=== PATIENT | male | born 1950 | race Two or more races ===

== ENCOUNTER 2022-10-30 05:20 | Day surgery (SDC) | payer BC ==
[2022-10-25 10:32] VITALS: BMI 23.8
[2022-10-30 09:37] VITALS: RESP 20
[2022-10-30] MEDS ORDERED: MIDAZOLAM HCL 2 MG/2 ML SINGLE DOSE VIAL ONE (11:42)
[2022-10-30] MEDS ORDERED: ONDANSETRON 4 MG/2 ML VIAL ONE (11:42)
[2022-10-30 15:01] VITALS: BP 138/85; PULSE 65; TEMP 97.6
== END 2022-10-30 14:35 | disposition home or self-care (01) ==
LOC: JASU-SURG 05:20
PROVIDERS: ATTEND Urology
PROC: 0TF3XZZ Fragmentation in Right Kidney Pelvis, External Approach (ICD-10-PCS; principal; 2022-10-30 11:00)
DX: N20.0 Calculus of kidney (principal)
CPT/HCPCS: 82962

== ENCOUNTER 2023-10-13 14:18 | Emergency (ER) | payer BC ==
[2023-10-13 14:24] VITALS: BP 151/89; PULSE 78; RESP 16; TEMP 97.9; BMI 22.8
[2023-10-13 14:57] LABS: EPI CELLS 1 /uL (0-25.1); HYALINE CASTS 0 /uL (0-3.1); URINE APPEARANCE CLOUDY; URINE BACTERIA 45 /uL (0-1359); URINE BILIRUBIN NEGATIVE (NEGATIVE); URINE COLOR YELLOW; URINE GLUCOSE (UA) NEGATIVE (NEGATIVE); URINE KETONE NEGATIVE (NEGATIVE); URINE LEUK ESTERASE 2+ (NEGATIVE); URINE NITRITE NEGATIVE (NEGATIVE); URINE PROTEIN 3+ (NEGATIVE); URINE RBC 4909 /uL (0-23.9); URINE WBC 2472 /uL (0-25.8)
== END 2023-10-13 15:53 | disposition home or self-care (01) ==
LOC: JERFT 14:18
DX: R30.0 Dysuria (principal); R35.0 Frequency of micturition
CPT/HCPCS: 81003; 87086; 99283-25

== ENCOUNTER 2024-01-31 11:37 | Inpatient (IN) | payer BC, OTHER ==
[2024-01-31 11:47] VITALS: BMI 22.8
[2024-01-31 13:47] LABS: BASO % 1.8 % (0-2.0); EOS % 3.8 % (0-4.5); HEMATOCRIT 36.5 % (35.4-49); HEMOGLOBIN 12.6 GM/dL (11.7-16.9); LYMPH % 12.6 % (8-40); MCH 32.7 pg (25.7-33.7); MCHC 34.5 g/dl (32.0-35.9); MEAN PLT VOLUME 8.6 fl (7.5-11.1); MONO % 9.2 % (3.8-10.2); NEUT % 72.6 % (42.8-82.8); PLATELET COUNT 277 10^3/uL (134-434); RBC 3.84 M/mm3 (4.00-5.60); RDW 16.4 % (11.9-15.9); WHITE BLOOD COUNT 6.3 K/mm3 (4.0-10.0)
[2024-01-31 13:56] LABS: INR 1.05 (0.83-1.09); PROTHROMBIN TIME (PATIENT) 11.9 SEC (9.7-13.0)
[2024-01-31 13:59] LABS: ACTIVATED PTT 31.6 SECONDS (25.2-36.5)
[2024-01-31 14:07] LABS: POTASSIUM 4.6 mmol/L (3.5-5.1)
[2024-01-31 14:09] LABS: CALCIUM 9.4 mg/dL (8.5-10.1)
[2024-01-31 14:10] LABS: ALBUMIN 3.3 g/dl (3.4-5.0); BLOOD UREA NITROGEN 32.1 mg/dL (7-18)
[2024-01-31 14:13] LABS: CREATININE 1.9 mg/dL (0.55-1.3)
[2024-01-31 14:14] LABS: BILIRUBIN,TOTAL 7.5 mg/dL (0.2-1)
[2024-01-31 14:15] LABS: TOT PROT 7.3 g/dl (6.4-8.2)
[2024-01-31] MEDS: SODIUM CHLORIDE 1,000 ML IV ONE (16:22)
[2024-02-01] MEDS ORDERED: DEXTROSE 5%-0.45% SALINE 1,000 ML IV SCH (06:30)
[2024-02-01 10:52] LABS: BASO % 1.1 % (0-2.0); EOS % 5.4 % (0-4.5); HEMATOCRIT 31.4 % (35.4-49); MCH 33.1 pg (25.7-33.7); MCHC 35.1 g/dl (32.0-35.9); MEAN CELL VOLUME 94.4 fl (80-96); MEAN PLT VOLUME 8.5 fl (7.5-11.1); MONO % 7.9 % (3.8-10.2); NEUT % 67.6 % (42.8-82.8); PLATELET COUNT 212 10^3/uL (134-434); RBC 3.33 M/mm3 (4.00-5.60); RDW 16.4 % (11.9-15.9); WHITE BLOOD COUNT 5.2 K/mm3 (4.0-10.0)
[2024-02-01 10:55] LABS: INR 1.14 (0.83-1.09); PROTHROMBIN TIME (PATIENT) 13.1 SEC (9.7-13.0)
[2024-02-01 11:14] LABS: POTASSIUM 4.3 mmol/L (3.5-5.1)
[2024-02-01 11:16] LABS: CALCIUM 8.4 mg/dL (8.5-10.1)
[2024-02-01 11:17] LABS: ALBUMIN 2.7 g/dl (3.4-5.0); BLOOD UREA NITROGEN 28.6 mg/dL (7-18)
[2024-02-01 11:20] LABS: CREATININE 1.6 mg/dL (0.55-1.3)
[2024-02-01 11:22] LABS: BILIRUBIN,TOTAL 6.9 mg/dL (0.2-1)
[2024-02-01] MEDS: PIPERACILLIN/TAZOB 3.375 GM 50 ML IVPB SCH (11:31)
[2024-02-01] MEDS: INSULIN ASPART SLIDING SCALE (NOVOLOG) 1 VIAL SQ SCH (11:33)
[2024-02-01] MEDS ORDERED: DEXTROSE 50%-WATER 25 GM/50 ML DISP.SYRIN ONE (13:12)
[2024-02-01] MEDS: DEXTROSE 5%-LACTATED RINGERS 1,000 ML IV SCH (13:31)
[2024-02-01] MEDS ORDERED: LACTATED RINGERS SOLUTION 1,000 ML/1,000 ML INFUS.BAG IV SCH (15:00)
[2024-02-01 18:29] LABS: URINE APPEARANCE CLEAR; URINE BILIRUBIN 1+ (NEGATIVE); URINE COLOR DK YELLOW; URINE GLUCOSE (UA) NEGATIVE (NEGATIVE); URINE KETONE NEGATIVE (NEGATIVE); URINE LEUK ESTERASE NEGATIVE (NEGATIVE); URINE NITRITE NEGATIVE (NEGATIVE); URINE PROTEIN TRACE (NEGATIVE); URINE UROBILINOGEN 0.2 mg/dL (0.2-1.0)
[2024-02-01] MEDS: DEXTROSE 50%-WATER 25 GM/50 ML DISP.SYRIN IVPUSH ONE (23:06)
[2024-02-02] MEDS: LACTATED RINGERS SOLUTION 1,000 ML/1,000 ML INFUS.BAG IV SCH ×3 (00:18→17:32)
[2024-02-02 08:59] LABS: POTASSIUM 4.5 mmol/L (3.5-5.1)
[2024-02-02 09:02] LABS: ALBUMIN 2.7 g/dl (3.4-5.0); BLOOD UREA NITROGEN 19.8 mg/dL (7-18); CALCIUM 8.4 mg/dL (8.5-10.1)
[2024-02-02 09:05] LABS: CREATININE 1.5 mg/dL (0.55-1.3)
[2024-02-02 09:07] LABS: TOT PROT 6.1 g/dl (6.4-8.2)
[2024-02-02 09:08] LABS: BASO % 0.8 % (0-2.0); EOS % 3.3 % (0-4.5); HEMATOCRIT 33.3 % (35.4-49); LYMPH % 14.8 % (8-40); MCH 31.7 pg (25.7-33.7); MCHC 33.2 g/dl (32.0-35.9); MEAN CELL VOLUME 95.5 fl (80-96); MEAN PLT VOLUME 8.8 fl (7.5-11.1); MONO % 7.1 % (3.8-10.2); PLATELET COUNT 233 10^3/uL (134-434); RBC 3.48 M/mm3 (4.00-5.60); RDW 15.8 % (11.9-15.9)
[2024-02-02 09:11] LABS: BILIRUBIN,TOTAL 3.6 mg/dL (0.2-1)
[2024-02-02 09:16] LABS: HEMATOCRIT 32.8 % (35.4-49); HEMOGLOBIN 11.2 GM/dL (11.7-16.9); MCH 32.4 pg (25.7-33.7); MCHC 34.1 g/dl (32.0-35.9); MEAN CELL VOLUME 95.1 fl (80-96); MEAN PLT VOLUME 8.8 fl (7.5-11.1); PLATELET COUNT 223 10^3/uL (134-434); RBC 3.45 M/mm3 (4.00-5.60); RDW 15.7 % (11.9-15.9); WHITE BLOOD COUNT 7.9 K/mm3 (4.0-10.0)
[2024-02-02 09:24] LABS: INR 1.14 (0.83-1.09); PROTHROMBIN TIME (PATIENT) 12.8 SEC (9.7-13.0)
[2024-02-02] MEDS ORDERED: LACTATED RINGERS SOLUTION 1,000 ML/1,000 ML INFUS.BAG IV SCH ×2 (15:00→15:09)
[2024-02-03 08:31] LABS: EOS % 4.3 % (0-4.5); HEMATOCRIT 32.6 % (35.4-49); LYMPH % 17.8 % (8-40); MCH 32.4 pg (25.7-33.7); MCHC 33.6 g/dl (32.0-35.9); MEAN CELL VOLUME 96.3 fl (80-96); MEAN PLT VOLUME 8.6 fl (7.5-11.1); MONO % 8.9 % (3.8-10.2); PLATELET COUNT 217 10^3/uL (134-434); RBC 3.39 M/mm3 (4.00-5.60); RDW 15.8 % (11.9-15.9); WHITE BLOOD COUNT 6.8 K/mm3 (4.0-10.0)
[2024-02-03 08:49] LABS: POTASSIUM 4.4 mmol/L (3.5-5.1)
[2024-02-03 08:59] LABS: ALBUMIN 2.6 g/dl (3.4-5.0)
[2024-02-03 09:00] LABS: CALCIUM 8.4 mg/dL (8.5-10.1)
[2024-02-03 09:02] LABS: BILIRUBIN,DIRECT 1.9 mg/dL (0.0-0.2); BLOOD UREA NITROGEN 21.3 mg/dL (7-18); CREATININE 1.3 mg/dL (0.55-1.3)
[2024-02-03 09:03] LABS: BILIRUBIN,TOTAL 2.4 mg/dL (0.2-1)
[2024-02-03] MEDS: PIPERACILLIN/TAZOB 3.375 GM 50 ML IVPB SCH (11:23)
[2024-02-04] MEDS: PIPERACILLIN/TAZOB 3.375 GM 3.375 GM in DEXTROSE 5%-WATER - 50 ML IVPB SCH (11:55)
[2024-02-04] MEDS: SODIUM CHLORIDE 1,000 ML IV SCH (11:59)
[2024-02-05 07:07] LABS: FIBROSIS SCORE. 0.97 (0.00-0.21); HCV ALPHA 2 MACRO CHART 291 mg/dL (110-276); NECRO.INFLAM ACT.SCORE 0.87 (0.00-0.17); NECROINFLAM. ACTIVITY GRADE A3-Severe activity (.)
[2024-02-05 09:41] LABS: BASO % 0.8 % (0-2.0); EOS % 5.6 % (0-4.5); HEMOGLOBIN 10.5 GM/dL (11.7-16.9); MCH 31.9 pg (25.7-33.7); MCHC 33.8 g/dl (32.0-35.9); MEAN CELL VOLUME 94.2 fl (80-96); MEAN PLT VOLUME 8.8 fl (7.5-11.1); MONO % 8.4 % (3.8-10.2); NEUT % 65.2 % (42.8-82.8); PLATELET COUNT 252 10^3/uL (134-434); RBC 3.29 M/mm3 (4.00-5.60); RDW 15.5 % (11.9-15.9); WHITE BLOOD COUNT 7.6 K/mm3 (4.0-10.0)
[2024-02-05 09:43] LABS: INR 1.08 (0.83-1.09); PROTHROMBIN TIME (PATIENT) 12.4 SEC (9.7-13.0)
[2024-02-05 10:47] LABS: POTASSIUM 4.2 mmol/L (3.5-5.1)
[2024-02-05 10:53] LABS: ALBUMIN 2.8 g/dl (3.4-5.0); CALCIUM 8.6 mg/dL (8.5-10.1)
[2024-02-05 10:54] LABS: BLOOD UREA NITROGEN 24.4 mg/dL (7-18)
[2024-02-05 10:57] LABS: CREATININE 1.4 mg/dL (0.55-1.3)
[2024-02-05 10:58] LABS: TOT PROT 6.1 g/dl (6.4-8.2)
[2024-02-05] MEDS ORDERED: MIDAZOLAM HCL 2 MG/2 ML SINGLE DOSE VIAL ONE (12:27)
[2024-02-05] MEDS ORDERED: SUGAMMADEX SODIUM 200 MG/2 ML VIAL ONE (12:46)
[2024-02-05 15:21] VITALS: RESP 18
[2024-02-06] MEDS: INSULIN (NOVOLOG) ASPART 100 UNITS/ML 10ML VIAL SQ ONE (01:41)
[2024-02-06] MEDS: PIPERACILLIN/TAZOB 3.375 GM 50 ML IVPB SCH (01:42)
[2024-02-06 08:11] LABS: CARCINOEMBRYONIC ANTIGEN 4.4 ng/mL (0.0-4.7)
[2024-02-07 10:22] LABS: HEMATOCRIT 32.3 % (35.4-49); HEMOGLOBIN 10.7 GM/dL (11.7-16.9); MCH 31.9 pg (25.7-33.7); MCHC 33.2 g/dl (32.0-35.9); MEAN PLT VOLUME 9.1 fl (7.5-11.1); PLATELET COUNT 210 10^3/uL (134-434); RBC 3.36 M/mm3 (4.00-5.60); RDW 15.2 % (11.9-15.9); WHITE BLOOD COUNT 7.5 K/mm3 (4.0-10.0)
[2024-02-07 10:32] LABS: POTASSIUM 5.4 mmol/L (3.5-5.1)
[2024-02-07 10:42] LABS: ALBUMIN 2.7 g/dl (3.4-5.0); BLOOD UREA NITROGEN 30.1 mg/dL (7-18)
[2024-02-07 10:44] LABS: BILIRUBIN,TOTAL 1.6 mg/dL (0.2-1); CREATININE 1.7 mg/dL (0.55-1.3); TOT PROT 5.8 g/dl (6.4-8.2)
[2024-02-07] MEDS: SODIUM CHLORIDE 0.45% 1,000 ML IV SCH (13:55)
[2024-02-07] MEDS: SODIUM ZIRCONIUM CYCLOSILICATE (LOKELMA) 5 GM PACKET PO SCH (14:31)
[2024-02-08 11:01] LABS: EOS % 7.6 % (0-4.5); HEMATOCRIT 32.1 % (35.4-49); HEMOGLOBIN 10.8 GM/dL (11.7-16.9); LYMPH % 20.4 % (8-40); MCHC 33.6 g/dl (32.0-35.9); MEAN CELL VOLUME 95.1 fl (80-96); MEAN PLT VOLUME 8.9 fl (7.5-11.1); MONO % 8.9 % (3.8-10.2); NEUT % 62.1 % (42.8-82.8); PLATELET COUNT 225 10^3/uL (134-434); RBC 3.37 M/mm3 (4.00-5.60); RDW 15.1 % (11.9-15.9); WHITE BLOOD COUNT 7.3 K/mm3 (4.0-10.0)
[2024-02-08 11:19] LABS: POTASSIUM 4.3 mmol/L (3.5-5.1)
[2024-02-08 11:20] LABS: CALCIUM 8.6 mg/dL (8.5-10.1)
[2024-02-08 11:21] LABS: ALBUMIN 2.7 g/dl (3.4-5.0); BLOOD UREA NITROGEN 26.3 mg/dL (7-18)
[2024-02-08 11:24] LABS: CREATININE 1.6 mg/dL (0.55-1.3)
[2024-02-08 11:25] LABS: BILIRUBIN,TOTAL 1.6 mg/dL (0.2-1)
[2024-02-08 14:30] VITALS: BP 147/74; PULSE 61; TEMP 98
== END 2024-02-08 18:59 | disposition home or self-care (01) | DRG 445 ==
LOC: JER 11:37 → JERBED 18:27 → J6S 02-01 00:24
PROVIDERS: ADMIT Internal Medicine; ATTEND Family Medicine
PROC: 0DJ08ZZ Inspection of Upper Intestinal Tract, Via Natural or Artificial Opening Endoscopic (ICD-10-PCS; 2024-02-05)
PROC: 0F9G4ZX Drainage of Pancreas, Percutaneous Endoscopic Approach, Diagnostic (ICD-10-PCS; principal; 2024-02-05 12:40)
DX: K83.8 Other specified diseases of biliary tract (principal); N17.9 Acute kidney failure, unspecified; K80.21 Calculus of gallbladder without cholecystitis with obstruction; I10 Essential (primary) hypertension; E78.5 Hyperlipidemia, unspecified; E11.9 Type 2 diabetes mellitus without complications; K57.90 Diverticulosis of intestine, part unspecified, without perforation or abscess without bleeding; K86.89 Other specified diseases of pancreas; K29.80 Duodenitis without bleeding; K76.9 Liver disease, unspecified; R79.89 Other specified abnormal findings of blood chemistry; E87.5 Hyperkalemia; F19.11 Other psychoactive substance abuse, in remission; Z85.46 Personal history of malignant neoplasm of prostate; Z87.898 Personal history of other specified conditions; Z86.19 Personal history of other infectious and parasitic diseases
CPT/HCPCS: 36415; 74170-TC; 74183-TC; 74330-TC; 76705-TC; 80048; 80053; 81003; 82105; 82172; 82248; 82378; 82962; 82977; 83010; 83036; 83690; 83883; 84460; 85025; 85027; 85610; 85730; 86140; 86301; 86704; 86705; 86708; 86850; 86900; 86901; 87086; 87340; 87350; 87517; 87522; 88104; 88305-TC; 93005; 93010; 99285-25; Q9967

== ENCOUNTER 2024-02-15 17:07 | Emergency (ER) | payer BC, OTHER ==
[2024-02-15 17:12] VITALS: BMI 22.8
[2024-02-15] MEDS ORDERED: ACETAMINOPHEN INJECTION 100 ML ONE (19:58)
[2024-02-15] MEDS ORDERED: ONDANSETRON 4 MG/2 ML VIAL ONE (20:07)
[2024-02-15] MEDS ORDERED: FAMOTIDINE 20 MG/50 ML IVPB 20 MG/50 ML MG IVPB ONE ×2 (20:07→20:10)
[2024-02-15] MEDS ORDERED: PANTOPRAZOLE SODIUM 40 MG VIAL ONE (20:10)
[2024-02-15 20:11] LABS: BASO % 0.2 % (0-2.0); HEMATOCRIT 38.9 % (35.4-49); HEMOGLOBIN 13.1 GM/dL (11.7-16.9); LYMPH % 4.8 % (8-40); MCH 31.6 pg (25.7-33.7); MCHC 33.7 g/dl (32.0-35.9); MEAN CELL VOLUME 93.7 fl (80-96); MONO % 5.9 % (3.8-10.2); NEUT % 89.1 % (42.8-82.8); PLATELET COUNT 256 10^3/uL (134-434); RBC 4.15 M/mm3 (4.00-5.60); RDW 14.7 % (11.9-15.9); WHITE BLOOD COUNT 13.7 K/mm3 (4.0-10.0)
[2024-02-15 20:18] LABS: INR 1.19 (0.83-1.09); PROTHROMBIN TIME (PATIENT) 13.6 SEC (9.7-13.0)
[2024-02-15] MEDS: ONDANSETRON 4 MG/2 ML VIAL IVPUSH ONE (20:21)
[2024-02-15] MEDS: FAMOTIDINE 20 MG/50 ML IVPB 20 MG/50 ML MG IVPB ONE (20:21)
[2024-02-15] MEDS: SODIUM CHLORIDE 0.9% 500 ML INFUS.BAG IV ONE (20:22)
[2024-02-15 20:31] LABS: POTASSIUM 3.9 mmol/L (3.5-5.1)
[2024-02-15 20:34] LABS: ALBUMIN 3.2 g/dl (3.4-5.0); BLOOD UREA NITROGEN 25.3 mg/dL (7-18); CALCIUM 9.6 mg/dL (8.5-10.1); MAGNESIUM 1.8 mg/dL (1.8-2.4)
[2024-02-15 20:37] LABS: CREATININE 1.7 mg/dL (0.55-1.3)
[2024-02-15 20:39] LABS: TOT PROT 7.6 g/dl (6.4-8.2)
[2024-02-15 20:44] LABS: BILIRUBIN,TOTAL 4.8 mg/dL (0.2-1)
[2024-02-15 23:37] VITALS: RESP 16
[2024-02-16 05:48] VITALS: BP 132/78; PULSE 70; TEMP 98
== END 2024-02-16 05:48 | disposition short-term general hospital (02) ==
LOC: JER 17:07 → JERBED 23:33 → UNDOADMIN 23:33 → JER 02-16 05:48
PROC: 3E033GC Introduction of Other Therapeutic Substance into Peripheral Vein, Percutaneous Approach (ICD-10-PCS; principal; 2024-02-15)
PROC: 3E033GC Introduction of Other Therapeutic Substance into Peripheral Vein, Percutaneous Approach (ICD-10-PCS; 2024-02-15)
DX: E11.649 Type 2 diabetes mellitus with hypoglycemia without coma (principal); N17.9 Acute kidney failure, unspecified; E80.6 Other disorders of bilirubin metabolism; K83.1 Obstruction of bile duct; R63.0 Anorexia; R17 Unspecified jaundice; K80.20 Calculus of gallbladder without cholecystitis without obstruction; Z20.822 Contact with and (suspected) exposure to COVID-19
CPT/HCPCS: 0241U-QW; 36415; 71045-TC-FY; 74176-TC; 76700-TC; 80053; 82140; 82962; 83690; 83735; 84484; 85025; 85610; 85730; 93005; 93010; 99285-25